=== PATIENT | male | born 2000 | race Caucasian/White ===

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

== ENCOUNTER 2022-04-18 09:23 | Outpatient (CLI) | payer OTHER, SELFPAY ==
--- NOTE | ~2022-04-18 | MR_ITS ---
EXAMINATION: MR brain/brain stem wo con DATE: 04/18/2022 10:26 INDICATION: SEIZURE-LIKE ACTIVITY x 1mo TECHNIQUE: Magnetic resonance imaging (MRI) of the brain and brainstem was performed without intraven ous contrast. Sequences included sagittal and axial T1-weighted SE, axial diffusion-weighted FS EPI A SSET, axial T2*-weighted GRE, axial T2-weighted FLAIR Propeller, and axial T2-weighted Propeller, cor onal T2 FLAIR and FSE T2 weighted sequences. Apparent diffusion coefficient (ADC) maps were created. COMPARISON: None. FINDINGS: No abnormal restricted diffusion to suggest acute ischemic infarct. No MRI evidence of hemorrhage or extra-axial collection. No suspicious foci of susceptibility to suggest prior intraparenchymal hemorr mariposa. . No evidence of advanced or lobar predominant parenchymal volume loss. Ventricles are proporti onal to brain volume. Basilar cisterns are patent. Hippocampi appear symmetric flow voids are preserv ed. Abnormal signal fills the right sphenoid sinus. IMPRESSION: 1. No MR findings to explain seizure activity. 2. Right sphenoid sinus mucoperiosteal disease. 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
== END 2022-04-18 09:24 | disposition home or self-care (01) ==
PROVIDERS: PCP Physician Assistant; Visit Provider Family Medicine
DX: R56.9 Unspecified convulsions (principal)
CPT/HCPCS: 70551

== ENCOUNTER 2022-05-25 19:10 | Emergency (ER) | payer OTHER, SELFPAY ==
--- NOTE | 2022-05-25 19:24 | ED.SKABFB ---
HPI - Skin/Abscess/Foreign Bdy General Chief complaint: Skin/Abscess/Foreign Body Stated complaint: boil right leg Time Seen by Provider: 05/25/22 19:24 Source: patient Mode of arrival: ambulatory History of Present Illness HPI narrative: 22-year-old with obesity presents to the ER with -- 10 cm erythematous / tender lesion in the right medial thigh. No fever or chills. No known insect bite. MD complaint: other ( Cellulitis right medial thigh) Onset (ago): unknown Tetanus up to date: no Location: RLE Severity: moderate Quality: aching Relieving factors: none Exacerbating factors: none Context: none Associated symptoms: denies other symptoms and shortness of breath Treatments prior to arrival: none Related Data Home Medications Medication Instructions Recorded Confirmed montelukast 10 mg tablet 10 mg PO DAILY 11/02/20 05/25/22 (Singulair) famotidine 20 mg tablet 1 tablet PO DAILY 05/25/22 05/25/22 Allergies Allergy/AdvReac Type Severity Reaction Status Date / Time No Known Allergies Allergy Verified 11/02/20 11:33 Review of Systems Review of Systems: All systems reviewed & are unremarkable except as noted in HPI and below Constitutional: Constitutional: Reports as per HPI and Reports no additional constitutional complaints Eyes: Eyes: Reports as per HPI and Reports no additional eye complaints ENT: Reports system reviewed and no additional complaints, except as documented and Reports as per HPI Cardiovascular: Cardiovascular: Reports as per HPI and Reports no additional cardiovascular complaints Respiratory: Respiratory: Reports as per HPI and Reports no additional respiratory complaints Gastrointestinal: Gastrointestinal: Reports as per HPI and Reports no additional gastrointestinal complaints Genitourinary: Genitourinary: Reports no additional male genitourinary complaints and Reports as per HPI Musculoskeletal: Musculoskeletal: Reports no additional musculoskeletal complaints and Reports as per HPI Integumentary/Breasts: Skin/Breast: Reports system reviewed and no additional complaints, except as docu Comments: right medial thigh is a 10 cm circular erythematous lesion which is painful. Neurologic: Reports system reviewed and no additional complaints, except as documented and Reports as per HPI Psychiatric: Psychiatric: Reports no additional psychiatric complaints and Reports as per HPI Endocrine: Endocrine: Reports no additional endocrine complaints and Reports as per HPI Hematologic/Lymphatic: Hematologic/Lymphatic: Reports no additional hematologic/lymphatic complaints and Reports as per HPI Allergic/Immunologic: Allergic/Immunologic: Reports no additional allergic/immunologic complaints PMFSH Past Medical History Medical History Patient denies medical problems Social History Social History Smoking status: Never smoker Alcohol intake: never Substance use: never Gender identity (if verbalized by the patient): Male Exam Const: General: healthy appearing and no acute distress Nutritional Appearance: well nourished and obese Orientation/consciousness: patient oriented x3 Limitations: no limitations HENMT: Head: normal to inspection Ears: external ears normal General nose exam: Normal external nose present Face and sinus: normal facial exam Mouth: Yes Normal oral and palatal mucosa present Throat: posterior oropharynx normal Eyes: Conjunctivae: conjunctivae normal Pupils: Equal, round and reactive pupils present EOM: EOMs intact bilaterally Direct Ophthalmoscopy: no photophobia Neck: Neck: normal visual inspection Chest: Chest palpation & inspection: normal inspection of the chest Resp: Effort & Inspection: normal respiratory effort Auscultation: clear to auscultation bilaterally Cardio: Rate: regular rate Rhythm: regular rhythm GI: Auscultati
[2022-05-25 19:42] VITALS: BP 144/68; PULSE 105; RESP 20; TEMP 36.6; O2SAT 98
[2022-05-25 20:10] LABS: Basophils Absolute Auto 0.03 K/mm3 (0.00-0.10); Basophils Percent Auto 0.5 % (0.0-1.0); Eosinophils Absolute Auto 0.03 K/mm3 (0.02-0.50); Eosinophils Percent Auto 0.5 % (1.0-6.0); Hematocrit 44.4 % (40.0-54.0); Hemoglobin 14.9 g/dL (14.0-18.0); Immature Granulocyte Absolute 0.02 K/mm3 (0.00-0.00); Immature Granulocyte Percent A 0.3 % (0.0-0.0); Immature Platelet Fraction Pct 6.8 % (1.0-7.0); Lymphocytes Absolute Auto 1.26 K/mm3 (1.10-4.50); Lymphocytes Percent Auto 18.9 % (18.0-42.0); Mean Corpuscular HGB Conc 33.6 g/dL (32.0-36.0); Mean Corpuscular Hemoglobin 31.9 pg (27.0-31.0); Mean Corpuscular Volume 95.1 fL (78.0-102.0); Mean Platelet Volume 11.7 fl (8.7-11.0); Monocytes Absolute Auto 0.38 K/mm3 (0.10-0.90); Monocytes Percent Auto 5.7 % (2.0-11.0); Neutrophils Absolute Auto 4.9 K/mm3 (1.7-7.2); Neutrophils Percent Auto 74.1 % (50.0-70.0); Platelet Count Result 128 K/mm3 (150-420); Red Blood Count 4.67 M/mm3 (4.70-6.10); Red Cell Distribution Width 12.5 % (11.6-14.4); White Blood Count 6.7 K/mm3 (4.8-10.8)
[2022-05-25 20:27] LABS: Partial Thromboplastin Time 26.7 SEC (23.90-30.70); Prothrombin Time 11.2 Seconds (9.50-12.10)
[2022-05-25 20:29] LABS: Lactic Acid Reflex 0.9 mmol/L (0.4-2.0)
[2022-05-25 20:40] LABS: Alanine Aminotransferase 38 U/L (16-63); Albumin Level 4.3 g/dL (3.4-5.0); Alkaline Phosphatase 58 U/L (46-116); Anion Gap 9 mmol/L (8-16); Aspartate Amino Transferase 16 U/L (15-37); Bilirubin,Total 0.8 mg/dL (0.00-1.00); Blood Urea Nitrogen 9 mg/dL (7-18); Calcium 9.2 mg/dL (8.5-10.1); Carbon Dioxide 25 mmol/L (21-32); Chloride 107 mmol/L (98-108); Estimated CRCL calculation 143 ml/min; Estimated Glomerular Filt Rate > 60; Glucose 121 mg/dL (70-99); Osmolality Calculated 291 mOsm/kg (285-295); Potassium 3.7 mmol/L (3.5-5.1); Sodium 141 mmol/L (136-145); Total Protein 7.4 g/dL (6.4-8.2)
[2022-05-25] MEDS: TETANUS,DIPHTHERIA,AC PERTUSSIS ADULT 0.5 ML (ADACEL) IM (20:40)
[2022-05-25] MEDS: CLINDAMYCIN HCL 150 MG CAP 450 MG PO (20:41)
[2022-05-25 21:04] VITALS: BP 134/71; PULSE 88; RESP 18; TEMP 36.8; O2SAT 95
== END 2022-05-25 21:06 | disposition home or self-care (01) ==
PROVIDERS: Emergency Provider Internal Medicine Critical Care Medicine; PCP Physician Assistant
DX: L03.115 Cellulitis of right lower limb (principal)
CPT/HCPCS: 36415; 80053; 83605; 84443; 85025; 85055; 85610; 85730; 87040; 90471; 90715; 99283; A9270

== ENCOUNTER 2022-07-22 08:29 | Outpatient (CLI) | payer OTHER, SELFPAY ==
--- NOTE | ~2022-07-22 | US_ITS ---
US abdomen complete EXAMINATION: US Abdomen Complete INDICATION: Abdomen pain. Diarrhea. PROCEDURE: Realtime High Resolution abdomen ultrasound. COMPARISON: No prior studies for comparison FINDINGS: There are gallstones. Common bile duct measures 3 mm. Liver echotexture within normal limits without focal mass. Pancreas within normal limits. Pancreati c tail is obscured by bowel gas. Spleen is enlarged measuring 16.7 cm. Renal echotexture is within n ormal limits bilaterally without hydronephrosis, contour deforming mass or renal stone. Right kidney measures 11.1 cm. Left kidney measures 11.2 cm. Visualized aspects of the aorta and IVC are within normal limits. Portal vein is patent. No sonograph ic Hernandez's sign indicated by the technologist. IMPRESSION: 1: Cholelithiasis. 2: Splenomegaly. Reviewed, dictated and finalized at location A.
== END 2022-07-22 08:30 | disposition home or self-care (01) ==
LOC: CHSIMG 08:30
PROVIDERS: PCP Family Medicine; Visit Provider Registered Nurse
DX: R10.9 Unspecified abdominal pain (principal)
CPT/HCPCS: 76700

== ENCOUNTER 2022-12-19 10:52 | Outpatient (CLI) | payer OTHER, SELFPAY ==
--- NOTE | ~2022-12-19 | XR_ITS ---
EXAM: XR foot LT min 3V DATE: 12/19/2022 11:21 HISTORY: pt. stepped on something and feels a needle in his heel . COMPARISON: None available. FINDINGS: Normal mineralization. No fracture or dislocation. No lytic or blastic lesion. Joint space s are maintained. No erosion or periosteal change. 1.7 cm linear radiopaque foreign body in the subcu taneous tissues of the heel. IMPRESSION: Linear radiopacity in the subcutaneous fat of the left heel. 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
== END 2022-12-19 10:53 | disposition home or self-care (01) ==
LOC: CHSIMG 10:55
PROVIDERS: PCP Physician Assistant; Visit Provider Emergency Medicine
DX: M79.672 Pain in left foot (principal); M79.5 Residual foreign body in soft tissue
CPT/HCPCS: 73630

== ENCOUNTER 2022-12-22 18:22 | Emergency (ER) | payer OTHER, SELFPAY ==
[2022-12-22 18:25] VITALS: BP 136/83; PULSE 89; RESP 18; TEMP 36.4; O2SAT 99
--- NOTE | 2022-12-22 18:46 | ED.GENADULT ---
HPI - General Adult General Chief complaint: Extremity Injury, Lower Stated complaint: left foot pain History of Present Illness HPI narrative: Adam came into the ER with pain in his left foot from a foreign body discovered last week. Related Data Home Medications Medication Instructions Recorded Confirmed montelukast 10 mg tablet 10 mg PO DAILY 11/02/20 12/22/22 (Singulair) famotidine 20 mg tablet 1 tablet PO DAILY 05/25/22 12/22/22 omeprazole 20 mg capsule,delayed 20 mg PO DAILY 12/22/22 12/22/22 release Allergies Allergy/AdvReac Type Severity Reaction Status Date / Time amoxicillin [From Amoxil] Allergy Rash Verified 12/22/22 18:47 Penicillins Allergy Rash Verified 12/22/22 18:47 Review of Systems Review of Systems: All systems reviewed & are unremarkable except as noted in HPI and below PMFSH Past Medical History Medical History Patient denies medical problems Social History Social History Smoking status: Never smoker Alcohol intake: never Substance use: never Gender identity (if verbalized by the patient): Male Exam Const: General: healthy appearing Nutritional Appearance: well nourished HENMT: Head: normal to inspection Ears: external ears normal Eyes: Conjunctivae: conjunctivae normal Pupils: Equal, round and reactive pupils present Neck: Neck: normal visual inspection Chest: Chest palpation & inspection: normal inspection of the chest Resp: Effort & Inspection: normal respiratory effort Skin: General skin exam: normal color Neuro: General: patient oriented x3 Extrem: Other: foreign body could not be identified on exam Psych: Mental Status: mental status grossly normal Course Course Emergency Course: EXAM:? XR foot LT min 3V DATE: 12/19/2022 11:21 HISTORY: pt. stepped on something and feels a needle in his heel . COMPARISON:? None available. FINDINGS:? Normal mineralization. No fracture or dislocation. No lytic or blastic lesion. Joint spaces are maintained. No erosion or periosteal change. 1.7 cm linear radiopaque foreign body in the subcutaneous tissues of the heel. IMPRESSION: Linear radiopacity in the subcutaneous fat of the left heel. Vital Signs Vital signs: Vital Signs Temperature 97.6 F 12/22/22 18:25 Pulse Rate 89 12/22/22 18:25 Respiratory Rate 18 12/22/22 18:25 Blood Pressure 136/83 12/22/22 18:25 Pulse Oximetry 99 12/22/22 18:25 Oxygen Delivery Room Air 12/22/22 18:25 Temperature 97.6 F 12/22/22 18:25 Pulse Rate 89 12/22/22 18:25 Respiratory Rate 18 12/22/22 18:25 Blood Pressure 136/83 12/22/22 18:25 Pulse Oximetry 99 12/22/22 18:25 Oxygen Delivery Room Air 12/22/22 18:25 Medical Decision Making Vital Signs Vital Signs: Vital Signs Temperature 97.6 F 12/22/22 18:25 Pulse Rate 89 12/22/22 18:25 Respiratory Rate 18 12/22/22 18:25 Blood Pressure 136/83 12/22/22 18:25 Pulse Oximetry 99 12/22/22 18:25 Oxygen Delivery Room Air 12/22/22 18:25 Temperature 97.6 F 12/22/22 18:25 Pulse Rate 89 12/22/22 18:25 Respiratory Rate 18 12/22/22 18:25 Blood Pressure 136/83 12/22/22 18:25 Pulse Oximetry 99 12/22/22 18:25 Oxygen Delivery Room Air 12/22/22 18:25 Discharge Plan Discharge Clinical Impression: Foreign body in foot, left Patient Disposition: Home, Self-Care Condition: Stable Instructions: Puncture Wound (ED) Prescriptions: New hydrocodone-acetaminophen 5-325 mg tablet 1 tablet PO Q8H PRN (Reason: pain) Qty: 10 0RF No Action famotidine 20 mg tablet 1 tablet PO DAILY omeprazole 20 mg capsule,delayed release(DR/EC) 20 mg PO DAILY montelukast [Singulair] 10 mg Tablet 10 mg PO DAILY Follow-up/Referrals: Dalila,ALLYSON Reyna [Primary Care Provider] -
== END 2022-12-22 18:55 | disposition home or self-care (01) ==
PROVIDERS: Emergency Provider Emergency Medicine; PCP Physician Assistant
DX: S90.852A Superficial foreign body, left foot, initial encounter (principal); X58.XXXA Exposure to other specified factors, initial encounter
CPT/HCPCS: 99283

== ENCOUNTER 2023-01-06 08:35 | Outpatient (CLI) | payer OTHER, SELFPAY ==
--- NOTE | ~2023-01-06 | US_ITS ---
EXAMINATION: US abdomen complete DATE: 01/06/2023 09:28 INDICATION: Splenomegaly. TECHNIQUE: Multiple grayscale and Doppler ultrasound images of the abdomen were obtained. COMPARISON: Ultrasound abdomen 07/22/2022, CT abdomen and pelvis 07/16/2017 FINDINGS: The visualized portions of the head and body of the pancreas are normal. The liver is dante l without focal lesion. There is normal flow in main portal vein. The gallbladder is absent. The comm on duct is normal and measures 5 mm. The kidneys are normal in size. The spleen measures 15.9 cm. The aorta and inferior vena cava are obscured by bowel gas. IMPRESSION: 1. Chronic mild splenomegaly. Reviewed, dictated and finalized at location A. 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
== END 2023-01-06 08:36 | disposition home or self-care (01) ==
LOC: CHSIMG 08:36
PROVIDERS: PCP Physician Assistant; Visit Provider Registered Nurse
DX: R16.1 Splenomegaly, not elsewhere classified (principal)
CPT/HCPCS: 76700

== ENCOUNTER 2024-04-19 19:46 | Emergency (ER) | payer OTHER, SELFPAY ==
[2024-04-19 19:46] VITALS: BP 135/82; PULSE 91; RESP 16; TEMP 36.6; O2SAT 98
--- NOTE | 2024-04-19 19:48 | ED.SKABFB ---
HPI - Skin/Abscess/Foreign Bdy General Chief complaint: Wound/Laceration Stated complaint: arm irritation Time Seen by Provider: 04/19/24 19:47 Source: patient Mode of arrival: ambulatory Limitations: no limitations History of Present Illness HPI narrative: 24-year-old male with autism, obesity presents to the ER with -- 2 cm erythematous lesion on back of his left arm which is tender. He noticed it prior to coming to the ER. No history of a bite. No fever or chills. blood sugars noted to be 99 MD complaint: rash ( Erythematous lesion) Onset (ago): hour(s) ( 1 hour ago) Tetanus up to date: no Location: RUE Severity: mild Quality: aching Relieving factors: none Exacerbating factors: none Associated symptoms: denies other symptoms Treatments prior to arrival: none Related Data Home Medications Medication Instructions Recorded Confirmed montelukast 10 mg tablet 10 mg PO DAILY 11/02/20 04/19/24 (Singulair) famotidine 20 mg tablet 1 tablet PO DAILY 05/25/22 04/19/24 omeprazole 20 mg capsule,delayed 20 mg PO DAILY 12/22/22 04/19/24 release Allergies Allergy/AdvReac Type Severity Reaction Status Date / Time amoxicillin [From Amoxil] Allergy Rash Verified 04/19/24 19:48 Penicillins Allergy Rash Verified 04/19/24 19:48 Review of Systems Review of Systems: All systems reviewed & are unremarkable except as noted in HPI and below Constitutional: Constitutional: Reports as per HPI and Reports no additional constitutional complaints Eyes: Eyes: Reports as per HPI and Reports no additional eye complaints ENT: Reports system reviewed and no additional complaints, except as documented and Reports as per HPI Cardiovascular: Cardiovascular: Reports as per HPI and Reports no additional cardiovascular complaints Respiratory: Respiratory: Reports as per HPI and Reports no additional respiratory complaints Gastrointestinal: Gastrointestinal: Reports as per HPI and Reports no additional gastrointestinal complaints Genitourinary: Genitourinary: Reports no additional male genitourinary complaints Musculoskeletal: Musculoskeletal: Reports no additional musculoskeletal complaints and Reports as per HPI Integumentary/Breasts: Skin/Breast: Reports system reviewed and no additional complaints, except as docu and Reports as per HPI Comments: 2 cm erythematous lesion on the back of his left arm Neurologic: Reports system reviewed and no additional complaints, except as documented and Reports as per HPI Psychiatric: Psychiatric: Reports no additional psychiatric complaints and Reports as per HPI Endocrine: Endocrine: Reports no additional endocrine complaints and Reports as per HPI Hematologic/Lymphatic: Hematologic/Lymphatic: Reports no additional hematologic/lymphatic complaints and Reports as per HPI Allergic/Immunologic: Allergic/Immunologic: Reports no additional allergic/immunologic complaints and Reports as per HPI [facility] Past Medical History Medical History Patient denies medical problems Social History Social History Smoking status: Never smoker Alcohol intake: never Substance use: never Gender identity (if verbalized by the patient): Male Exam Narrative: afebrile. Const: General: no acute distress Nutritional Appearance: obese Orientation/consciousness: patient oriented x3 Limitations: no limitations HENMT: Head: normal to inspection Ears: external ears normal Face/Nose/Sinus: Normal external nose present Face and sinus: normal facial exam Mouth: Yes Normal oral and palatal mucosa present Throat: posterior oropharynx normal Eyes: Conjunctivae: conjunctivae normal Pupils: Equal, round and reactive pupils present EOM: EOMs intact bilaterally Direct Ophthalmoscopy: no photophobia Neck: Neck: normal visual inspection, no lymphadenopathy and no meningeal signs Chante
[2024-04-19 19:50] VITALS: BP 135/82; PULSE 91; RESP 16; TEMP 36.8; O2SAT 98
[2024-04-19 19:58] LABS: Glucose Point of Care 99 mg/dl (65-105)
[2024-04-19] MEDS: TETANUS,DIPHTHERIA,AC PERTUSSIS ADULT 0.5 ML (ADACEL) IM (20:05)
[2024-04-19] MEDS: SULFAMETHOXAZOLE/TRIMETHOPRIM 800/160 MG DS TABLET 1 TAB PO (20:07)
== END 2024-04-19 20:22 | disposition home or self-care (01) ==
PROVIDERS: Emergency Provider Internal Medicine Critical Care Medicine; PCP Physician Assistant
DX: L03.114 Cellulitis of left upper limb (principal); F84.0 Autistic disorder; E66.9 Obesity, unspecified; Z68.41 Body mass index [BMI] 40.0-44.9, adult; Z23 Encounter for immunization
CPT/HCPCS: 82948; 90471; 90715; 99283; A9270

== ENCOUNTER 2025-02-27 17:42 | Emergency (ER) | payer OTHER, SELFPAY ==
[2025-02-27 17:46] VITALS: BP 151/82; PULSE 119; RESP 18; TEMP 36.4; O2SAT 95
--- OUTSIDE RECORDS SUMMARY | 2025-02-27 17:47 | XMS_ITS | Encounter Summary ---
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
--- OUTSIDE RECORDS SUMMARY | 2025-02-27 17:47 | XMS_ITS | Clinical Summary ---
Author Organization [facility] Address [address] [place] [address] Care Team Providers Care Carpet Sewer Name Role Phone Landon Whitt MD Primary Care Provider Allergies Active Allergy Reactions Criticality Noted Date Comments Alcohol Hives 01/12/2023 Alcohol prep pads Amoxicillin Hives 01/05/2023 Chlorhexidine Hives 01/12/2023 Penicillins Hives 01/05/2023 Medications omeprazole (PRILOSEC) 20 MG capsule Take 20 mg by mouth daily. Active sulfamethoxazol e-trimethoprim (BACTRIM DS) 800-160 MG tablet Take 1 tablet by mouth 2 (two) times daily. Active montelukast (SINGULAIR) 10 MG tablet Take 10 mg by mouth nightly at bedtime. Active famotidine (PEPCID) 40 MG tablet Take by mouth 2 (two) times daily. Active HYDROcodone-argentina taminophen (NORCO) 5-325 MG tabletIndicatio ns:Acute Pain < 7 Day Supply,post op Take 1-2 tablets by mouth every 6 (six) hours as needed for Pain. 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 Gender Identity Not on file Sexual Orientation Not on file Last Filed Vital Signs Vital Sign Reading Time Taken Comments Blood Pressure 128/65 01/12/2023 10:05 AM CLAIMS SUPPORT SPECIALIST Pulse 85 01/12/2023 10:05 AM CLAIMS SUPPORT SPECIALIST Temperature 36.9 C (98.4 F) 01/12/2023 10:05 AM CLAIMS SUPPORT SPECIALIST Respiratory Rate 20 01/12/2023 10:05 AM CLAIMS SUPPORT SPECIALIST Oxygen Saturation 100% 01/12/2023 10:05 AM CLAIMS SUPPORT SPECIALIST Inhaled Oxygen Concentration - - Weight 127 kg (280 lb) 01/05/2023 1:49 PM CLAIMS SUPPORT SPECIALIST Height 188 cm (6' 2 ) 01/05/2023 1:49 PM CLAIMS SUPPORT SPECIALIST Body Mass Index 35.95 01/05/2023 1:49 PM CLAIMS SUPPORT SPECIALIST Plan of Treatment Health Maintenance Due Date Last Done Comments Annual Physical 2005 Hepatitis C 02/18/2020 COVID-19 Vaccine ( season) 2024 DTaP, Tdap and Td Vaccines (8 - Td or Tdap) 05/25/2032 05/25/2022, 04/18/2013, 05/12/2007, Additional history exists Pneumococcal Vaccine: Pediatrics (0 to 5 Years) and At-Risk Patients (6 to 64 Years) Aged Out 2002, 2002 No longer eligibl e based on patient's age to complete this topic Hepatitis B Vaccines Completed 02/20/2003, 2002, 2002 HPV Vaccines Completed 02/20/2014, 06/30, 04/18/2013 Meningococcal Vaccine Completed 07/27/2019, 013 Meningococcal B Vaccine Completed 06/19/2020, 07/27 RSV Immunizations Under 20 Months Aged Out No longer eligible based on patient's age to complete this topic Insurance Care Teams Carpet Sewer Relationship Specialty Start Date End Date Landon Whitt MD [address] [place] [phone] PCP - General FAMILY PRACTICE 04/14/22
--- NOTE | 2025-02-27 17:57 | ED.SKABFB ---
HPI - Skin/Abscess/Foreign Bdy General Chief complaint: Skin/Abscess/Foreign Body Stated complaint: BOIL Time Seen by Provider: 02/27/25 17:56 Source: patient and family Mode of arrival: ambulatory Limitations: no limitations History of Present Illness HPI narrative: Patient is a 25-year-old male with a right posterior lower extremity abscess/ boil / cellulitis for review today. It has been there for the past week. It is painful. MD complaint: rash and abscess/boil Onset (ago): week(s) ( One) Tetanus up to date: unsure Location: RLE ( posterior thigh near the buttocks) Severity: moderate Severity scale (1-10): 4 Quality: burning and sharp Pain Consistency: constant Relieving factors: none Exacerbating factors: palpation Context: other ( patient has a worsening right lower extremity posterior thigh redness area for evaluation) Associated symptoms: denies other symptoms Treatments prior to arrival: none Related Data Home Medications ?Medication ?Instructions ?Recorded ?Confirmed ?Last Taken ?Type montelukast 10 mg tablet 10 mg PO DAILY 11/02/20 04/19/24 Unknown History (Singulair) famotidine 20 mg tablet 1 tablet PO DAILY 05/25/22 04/19/24 Unknown History omeprazole 20 mg capsule,delayed 20 mg PO DAILY 12/22/22 04/19/24 Unknown History release Allergies Allergy/AdvReac Type Severity Reaction Status Date / Time amoxicillin (From Amoxil) Allergy Rash Verified 02/27/25 17:50 Penicillins Allergy Rash Verified 02/27/25 17:50 Review of Systems Review of Systems: All systems reviewed & are unremarkable except as noted in HPI and below Constitutional: Constitutional: Reports no additional constitutional complaints Eyes: Eyes: Reports no additional eye complaints ENT: Reports system reviewed and no additional complaints, except as documented Cardiovascular: Cardiovascular: Reports no additional cardiovascular complaints Respiratory: Respiratory: Reports no additional respiratory complaints Gastrointestinal: Gastrointestinal: Reports no additional gastrointestinal complaints Genitourinary: Genitourinary: Reports no additional male genitourinary complaints Musculoskeletal: Musculoskeletal: Reports no additional musculoskeletal complaints Integumentary/Breasts: Skin/Breast: Reports system reviewed and no additional complaints, except as docu Neurologic: Reports system reviewed and no additional complaints, except as documented Psychiatric: Psychiatric: Reports no additional psychiatric complaints Endocrine: Endocrine: Reports no additional endocrine complaints Hematologic/Lymphatic: Hematologic/Lymphatic: Reports no additional hematologic/lymphatic complaints Allergic/Immunologic: Allergic/Immunologic: Reports no additional allergic/immunologic complaints PMFSH Past Medical History Medical History Patient denies medical problems Social History Social History Smoking status: Never smoker Alcohol intake: never Substance use: never Gender identity (if verbalized by the patient): Male Exam Const: General: healthy appearing Nutritional Appearance: well nourished Orientation/consciousness: patient oriented x3 HENMT: Head: normal to inspection Ears: external ears normal Face/Nose/Sinus: Normal external nose present Eyes: Conjunctivae: conjunctivae normal Pupils: Equal, round and reactive pupils present EOM: EOMs intact bilaterally Neck: Neck: normal visual inspection Chest: Chest palpation & inspection: normal inspection of the chest Resp: Effort & Inspection: normal respiratory effort and not labored Auscultation: clear to auscultation bilaterally and no crackles Cardio: Rate: regular rate Rhythm: regular rhythm Heart sounds: no murmurs GI: Inspection: non-distended Auscultation: normal bowel sounds : General: Yes bladder normal to palpation Back/Spine/Pelvis: Back: no CVA tenderness Skin: General skin exam: normal color Rashes: rash noted Wounds: no wounds Other: right posterior thigh below the buttocks crease has a large erythema area with a small central hardened area without bogginess to warrant I and D at this time; no definite abscess formation at this time; cellulitis only seen Neuro: General: patient oriented x3 Cranial nerves: Yes Nystagmus not present Speech: normal speech Extrem: General: normal to inspection Psych: Mental Status: mental status grossly normal Affect: normal affect Attitude: cooperative Course Vital Signs Vital signs: Vital Signs Oxygen Delivery Room Air 02/27/25 17:42 Temperature 36.4 C 02/27/25 17:46 Pulse Rate 119 H 02/27/25 17:46 Respiratory Rate 18 02/27/25 17:46 Blood Pressure 151/82 H 02/27/25 17:46 Pulse Oximetry 95 02/27/25 17:46 Oxygen Delivery Room Air 02/27/25 17:46 MDM - Skin/Abscess/Foreign Bdy MDM Narrative Medical decision making narrative: patient is a 25-year-old male with a cellulitis formation on the right posterior thigh. We will do clindamycin at this time. He is to come back to the ER if worse for I&D. Discharge Plan Discharge Clinical Impression: Cellulitis Qualifiers: Site of cellulitis: extremity Site of cellulitis of extremity: lower extremity Laterality: right Qualified Code(s): L03.115 - Cellulitis of right lower limb Patient Disposition: Home, Self-Care Condition: Stable Instructions: Antibiotic Form, Cellulitis (ED) Additional Instructions: Please follow-up with the primary doctor next week. Come back to the ER if this area gets worse or formulate a hardened central area. You would need incision and drainage of that area if it gets worse. Patient Language: Italian Prescriptions: New clindamycin HCl [Cleocin HCl] 300 mg capsule 300 mg PO TID 10 Days Qty: 30 0RF No Action famotidine 20 mg tablet 1 tablet PO DAILY omeprazole 20 mg capsule,delayed release(DR/EC) 20 mg PO DAILY montelukast [Singulair] 10 mg Tablet 10 mg PO DAILY Follow-up/Referrals: Jose Eduardo,MD Landon [Primary Care Provider] - Time of Disposition: 18:24
--- OUTSIDE RECORDS SUMMARY | 2025-02-27 18:25 | XMS_ITS | Clinical Summary ---
Author Organization 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 Gender Identity Not on file Sexual Orientation Not on file Last Filed Vital Signs Vital Sign Reading Time Taken Comments Blood Pressure 128/65 01/12/2023 10:05 AM MIXER LEVER OPERATOR Pulse 85 01/12/2023 10:05 AM MIXER LEVER OPERATOR Temperature 36.9 C (98.4 F) 01/12/2023 10:05 AM MIXER LEVER OPERATOR Respiratory Rate 20 01/12/2023 10:05 AM MIXER LEVER OPERATOR Oxygen Saturation 100% 01/12/2023 10:05 AM MIXER LEVER OPERATOR Inhaled Oxygen Concentration - - Weight 127 kg (280 lb) 01/05/2023 1:49 PM MIXER LEVER OPERATOR Height 188 cm (6' 2 ) 01/05/2023 1:49 PM MIXER LEVER OPERATOR Body Mass Index 35.95 01/05/2023 1:49 PM MIXER LEVER OPERATOR Plan of Treatment Health Maintenance Due Date [...] to complete this topic Insurance Care Teams Bobcat Operator Relationship Specialty Start Date End Date Landon Whitt MD [address] [place] [phone] PCP - General FAMILY PRACTICE 04/14/22
--- OUTSIDE RECORDS SUMMARY | 2025-02-27 18:25 | XMS_ITS | Encounter Summary ---
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
== END 2025-02-27 18:40 | disposition home or self-care (01) ==
PROVIDERS: Emergency Provider Emergency Medicine; PCP Family Medicine
DX: L03.115 Cellulitis of right lower limb (principal)
CPT/HCPCS: 99283